=== PATIENT | female | born 1960 | race American Indian/Alaskan Native ===

== ENCOUNTER 2017-04-24 10:38 | Emergency (ER) | payer BC ==
--- NOTE | 2017-04-24 11:27 | XRay Report ---
CHEST XRAY, 2 VIEWS: History: Shortness of breath. Findings: There is mild cardiomegaly. Pulmonary vessels are within normal limits. The lungs are clear and fully expanded. No infiltrate, pleural effusion or pneumothorax. Normal thoracic cage. IMPRESSION: Mild cardiomegaly.
[2017-04-24 11:44] LABS: Basophils % (Auto) 1.1 % (0.0-1.8); Eosinophils % (Auto) 0.8 % (0.0-4.3); Hematocrit 38.2 % (30.3-42.9); Hemoglobin 12.4 gm/dl (10.1-14.3); Mean Corpuscular HGB Conc 33 % (30-34); Mean Corpuscular Hemoglobin 28 pg (28-32); Mean Corpuscular Volume 87 fl (79-97); Platelet Count 154 K/mm3 (140-440); Red Cell Distribution Width 14.2 % (13.2-15.2); White Blood Count 5.2 K/mm3 (4.5-11.0)
[2017-04-24 12:03] LABS: Anion Gap 20 mmol/L; BUN/Creatinine Ratio 19; Blood Urea Nitrogen 13 mg/dL (7-17); Calcium 8.5 mg/dL (8.4-10.2); Carbon Dioxide 22 mmol/L (22-30); Chloride 106.9 mmol/L (98-107); Glucose 126 mg/dL (65-100); Sodium 145 mmol/L (137-145)
[2017-04-24] MEDS ORDERED: ATROVENT IH ONE (16:33)
[2017-04-24] MEDS ORDERED: XOPENEX IH ONE ×2 (16:33→17:42)
[2017-04-24] MEDS ORDERED: MAGNESIUM SULFATE 2GM/50ML 2 GM/50 ML BAG IV ONE (17:42)
[2017-04-24] MEDS ORDERED: NACL ONE (17:54)
--- NOTE | 2017-04-24 18:00 | Emergency Department Report ---
ED Shortness of Breath HPI - General Chief Complaint: Dyspnea/Respdistress Stated Complaint: SOB Time Seen by Provider: 04/24/17 16:11 Source: patient Mode of arrival: Ambulatory Limitations: No Limitations - History of Present Illness Initial Comments: 56-year-old female with no signficant a past medical history presents to the hospital complaining the shortness of breath and cough 1 week. Cough is dry. Patient complains of shortness of breath with intermittent wheezing episodes. Symptoms worse with exertion and while trying to sleep. She denies chest pain. Positive associated dizziness. No fever, calf tenderness, or fever reported. Mild pedal edema reported. Patient admits to tobacco use. No history of asthma/COPD. No history of PE/DVT. Patient did go to or [place] another state [address] and returned on April 16. Last doctor visit one year ago and she reports that her blood pressures typically elevated with her doctor and hospital visits but denies a diagnosis of hypertension. PMD: none - Related Data Previous Rx's Medication Instructions Recorded Last Taken Type ALBUTEROL Inhaler [ProAir HFA 2 puff IH QID PRN #1 inhalation 04/24/17 Unknown Rx Inhaler] Azithromycin [Zithromax Z-CATHERINE] 1 tab PO DAILY 5 Days tab 04/24/17 Unknown Rx Benzonatate [Tessalon Perle] 100 mg PO TID PRN #20 capsule 04/24/17 Unknown Rx Inhaler, Assist Devices [Space 1 each MC PRN #1 spacer 04/24/17 Unknown Rx Chamber Plus] predniSONE [Deltasone] 40 mg PO QDAY 5 Days tab 04/24/17 Unknown Rx Allergies Allergy/AdvReac Type Severity Reaction Status Date / Time No Known Allergies Allergy Verified 04/24/17 10:52 ED Review of Systems ROS: Stated complaint: SOB Other details as noted in HPI Comment: All other systems reviewed and negative Other: Constitutional: No fevers chills Eyes: No eye pain visual changes ENT: No ear pain or throat pain Neck: Denies pain Respiratory: As per HPI Cardiovascular: Denies chest pain, palpitations, syncope GI: Denies abdominal pain, nausea, vomiting, diarrhea : Denies dysuria Musculoskeletal: Denies back pain Skin: Denies rash, lesions, erythema Neurologic: Denies headache, numbness, weakness Psychiatric: Denies suicidal ideation, hallucinations ED Past Medical Hx - Past Medical History Previous Medical History?: No - Surgical History Past Surgical History?: No - Social History Smoking Status: Current Some Day Smoker Substance Use Type: Alcohol - Medications Home Medications: Home Medications Medication Instructions Recorded Confirmed Last Taken Type ALBUTEROL Inhaler [ProAir HFA 2 puff IH QID PRN #1 inhalation 04/24/17 Unknown Rx Inhaler] Azithromycin [Zithromax Z-CATHERINE] 1 tab PO DAILY 5 Days tab 04/24/17 Unknown Rx Benzonatate [Tessalon Perle] 100 mg PO TID PRN #20 capsule 04/24/17 Unknown Rx Inhaler, Assist Devices [Space 1 each MC PRN #1 spacer 04/24/17 Unknown Rx Chamber Plus] predniSONE [Deltasone] 40 mg PO QDAY 5 Days tab 04/24/17 Unknown Rx ED Physical Exam - General Limitations: No Limitations - Other Other exam information: General: No limitations, patient is alert in no acute distress Head exam: Atraumatic, normocephalic Eyes exam: Normal appearance ENT: Moist mucous membrane, normal oropharynx Neck exam: Normal inspection Respiratory exam: Coarse expiratory breath sounds coarse wheezing, diminished, no excessive muscle use Cardiovascular: Normal rate and rhythm, normal heart sounds Abdomen: Soft, nondistended, and nontender, with normal bowel sounds, no rebound, or guarding Extremity: Full range of motion normal inspection no deformity, trace pedal edema, tenderness or leg asymmetry Back: Normal Inspection, full range of motion, no tenderness Neurologic: Alert, oriented x3, cranial nerves intact, no motor or sensory deficit Psychiatric: normal affect, normal mood Skin: Warm, dry, intact ED Course Vital Signs 04/24/17 04/24/17 04/24/17 10:49 16:17 16:31 Temperature 98.1 F Pulse Rate 118 H 117 H Pulse Rate [ Posterior Bilateral Bases ] Respiratory 20 33 H Rate Respiratory Rate [Posterior Bilateral Bases] Blood Pressure 169/112 143/101 Blood Pressure [Right] O2 Sat by Pulse 99 97 96 Oximetry 04/24/17 04/24/17 04/24/17 16:37 16:38 16:45 Temperature 98.8 F Pulse Rate 107 H 113 H Pulse Rate [ Posterior Bilateral Bases ] Respiratory 24 24 37 H Rate Respiratory Rate [Posterior Bilateral Bases] Blood Pressure 143/101 Blood Pressure 143/100 [Right] O2 Sat by Pulse 97 97 96 Oximetry 04/24/17 04/24/17 04/24/17 17:01 17:07 17:15 Temperature Pulse Rate 106 H 105 H Pulse Rate [ 103 H Posterior Bilateral Bases ] Respiratory 22 15 Rate Respiratory 25 H Rate [Posterior Bilateral Bases] Blood Pressure 163/104 163/104 Blood Pressure [Right] O2 Sat by Pulse 91 98 Oximetry 04/24/17 04/24/17 04/24/17 17:31 17:35 17:45 Temperature Pulse Rate 110 H 111 H Pulse Rate [ 102 H 113 H Posterior Bilateral Bases ] Respiratory 33 H 12 Rate Respiratory 20 16 Rate [Posterior Bilateral Bases] Blood Pressure 163/104 163/104 Blood Pressure [Right] O2 Sat by Pulse Oximetry 04/24/17 18:02 Temperature Pulse Rate Pulse Rate [ 111 H Posterior Bilateral Bases ] Respiratory Rate Respiratory 20 Rate [Posterior Bilateral Bases] Blood Pressure Blood Pressure [Right] O2 Sat by Pulse Oximetry - Reevaluation(s) Reevaluation #1: 04/24/17 17:58 Patient had increase in peak flow from 190 prior to Xopenex and Atrovent to 220 after Atrovent 1 mg and Xopenex 2.5 mg. Additional Xopenex ordered. D-dimer less than 250 however, CT angiogram ordered to better visualize chest pathology. Patient received Solu-Medrol and magnesium also ordered 04/24/17 20:42 Patient reports much better after additional nebs. Tolerating ambulation without shortness of breath. ED Medical Decision Making - Lab Data Result diagrams: 04/24/17 11:30 04/24/17 11:30 Lab Results 04/24/17 04/24/17 04/24/17 Range/Units 11:30 11:30 16:35 WBC 5.2 (4.5-11.0) K/mm3 RBC 4.40 (3.65-5.03) M/mm3 Hgb 12.4 (10.1-14.3) gm/dl Hct 38.2 (30.3-42.9) % MCV 87 (79-97) fl MCH 28 (28-32) pg MCHC 33 (30-34) % RDW 14.2 (13.2-15.2) % Plt Count 154 (140-440) K/mm3 Lymph % (Auto) 41.4 H (13.4-35.0) % [place] % (Auto) 9.2 H (0.0-7.3) % Eos % (Auto) 0.8 (0.0-4.3) % Baso % (Auto) 1.1 (0.0-1.8) % Lymph # 2.1 (1.2-5.4) K/mm3 [place] # 0.5 (0.0-0.8) K/mm3 Eos # 0.0 (0.0-0.4) K/mm3 Baso # 0.1 (0.0-0.1) K/mm3 Seg Neutrophils % 47.5 (40.0-70.0) % Seg Neutrophils # 2.5 (1.8-7.7) K/mm3 D-Dimer 237.70 H (0-234) ng/mlDDU Sodium 145 (137-145) mmol/L Potassium 4.0 (3.6-5.0) mmol/L Chloride 106.9 (98-107) mmol/L Carbon Dioxide 22 (22-30) mmol/L Anion Gap 20 mmol/L BUN 13 (7-17) mg/dL Creatinine 0.7 (0.7-1.2) mg/dL Estimated GFR > 60 ml/min BUN/Creatinine Ratio 19 % Glucose 126 H (65-100) mg/dL Calcium 8.5 (8.4-10.2) mg/dL Troponin T < 0.010 (0.00-0.029) ng/mL - Radiology Data Radiology results: report reviewed Chest x-ray: No acute findings CT angiogram chest: Questionable early pneumonia versus subsegmental atelectasis of both lower low speed no evidence of PE. Mild indeterminate enlargement of a few mediastinal lymph nodes - Medical Decision Making Patient has persistent tachycardia. CT angiogram negative for PE. Patient states her heart rate and BP are typically elevated she comes to the hospital because hospitals make her nervous. Patient ambulates to the ED without difficulty. No pain reported. After nebs heart rate around 110 with a respiratory rate of 18 and saturation 95% on room air. Patient be discharged with medications for acute bronchitis. Received by mouth azithromycin prior to discharge. Close outpatient follow-up with PMD will be encouraged - Differential Diagnosis bronchitis, COPD, pneumonia, heart failure, PE Critical Care Time: No Critical care attestation.: If time is entered above; I have spent that time in minutes in the direct care of this critically ill patient, excluding procedure time. ED Disposition Clinical Impression: Acute bronchitis, Elevated blood pressure reading, Tachycardia Disposition: DC-01 TO HOME OR SELFCARE Is pt being admited?: No Does the pt Need Aspirin: No Condition: Stable Instructions: Acute Bronchitis (ED), How to Take a Blood Pressure (ED) Additional Instructions: Continue to monitor your blood pressure and heart rate at home as discussed. Take the medication as prescribed. It is very important that you follow up with your primary care doctor for further management and reassessment of your vital signs. Please return if symptoms as indicated by your discharge instructions. Use the discount coupon card provided to make her medications more affordable as discussed. Prescriptions: ALBUTEROL Inhaler [ProAir HFA Inhaler] 2 puff IH QID PRN #1 inhalation PRN Reason: Shortness Of Breath Azithromycin [Zithromax Z-CATHREINE] 1 tab PO DAILY 5 Days tab Benzonatate [Tessalon Perle] 100 mg PO TID PRN #20 capsule PRN Reason: Cough Inhaler, Assist Devices [Space Chamber Plus] 1 each MC PRN #1 spacer predniSONE [Deltasone] 40 mg PO QDAY 5 Days tab Referrals: ALANIS BALDWIN JR, MD [Staff Physician] - 3-5 Days [facility] [Provider Group] - 3-5 Days Time of Disposition: 20:50
--- NOTE | 2017-04-24 19:06 | Cat Scan Report ---
FINAL REPORT PROCEDURE: CT angiogram chest with contrast. TECHNIQUE: Computerized tomographic angiography of the chest was performed after the IV injection of iodinated nonionic contrast including image processing. The image data was postprocessed using 2-dimensional multiplanar reformatted (MPR) and 3-dimensional (MIP and/or volume rendered) techniques. HISTORY: Shortness of breath, cough. COMPARISON: No prior studies are available for comparison. FINDINGS: The trachea and central bronchi appear normal. There is a small amount of alveolar opacity in the dependent portions of both lower lobes. This could represent early pneumonia or subsegmental atelectasis. The lungs are otherwise clear and well expanded. The thoracic aorta has a normal caliber. There is no evidence of dissection. The pulmonary arteries enhance normally. There are no definite filling defects to indicate pulmonary embolism. There are some median size lymph nodes in the superior mediastinum. These are located in the aorticopulmonary window and the pretracheal region. The lymph node in the aorticopulmonary window measures 23.5 millimeters x 8.5 millimeters in cross-section. These are a nonspecific finding. Follow-up imaging is suggested. The heart size is normal. There are no pleural effusions. The thoracic skeleton appears intact. IMPRESSION: Question early pneumonia versus subsegmental atelectasis in both lower lobes. No evidence of pulmonary embolism. Mild indeterminate enlargement of a few mediastinal lymph nodes.
[2017-04-24] MEDS ORDERED: ZITHROMAX PO ONE (19:08)
[2017-04-24 20:42] VITALS: BP 156/85
== END 2017-04-24 21:09 | disposition home or self-care (01) ==
LOC: ED 10:38
DX: J20.9 Acute bronchitis, unspecified (principal); R00.0 Tachycardia, unspecified; F17.200 Nicotine dependence, unspecified, uncomplicated; R03.0 Elevated blood-pressure reading, without diagnosis of hypertension
CPT/HCPCS: 36415; 71020; 71275; 80048; 84484; 85025; 85379; 93005; 93010; 94640; 94644; 96365; 96375; 99285; J2930; J3475; Q9967

== ENCOUNTER 2017-12-20 13:46 | Outpatient (CLI) | payer OTHER | END 2017-12-20 13:47 | disposition home or self-care (01) | LOC: PF 13:46 | PROVIDERS: ATTEND Internal Medicine | DX: R06.02 Shortness of breath (principal); I10 Essential (primary) hypertension; F17.210 Nicotine dependence, cigarettes, uncomplicated | CPT/HCPCS: 94010 ==

== ENCOUNTER 2020-03-14 08:20 | Outpatient (CLI) | payer BC | END 2020-03-14 08:21 | disposition home or self-care (01) | LOC: SPVWC 08:20 | PROVIDERS: ATTEND Student in an Organized Health Care Education/Training Program | DX: Z12.31 Encounter for screening mammogram for malignant neoplasm of breast (principal) | CPT/HCPCS: 77067 ==